=== PATIENT | male | born 1970 | race African-American/Black ===

== ENCOUNTER 2016-08-24 16:30 | Observation (INO) | payer BC ==
--- NOTE | ~2016-08-24 | DS ---
Discharge Summary [id number] [place]. [address] NAME: VELMA STEIN : 74 STATUS : DIS Isaias PAT#: [id number] AGE: 46 ADM/REG DATE : 08/24/16 MR#: [id number] REPORT SERV DATE: 08/26/16 DICTATED BY: TIANNA GARCIA DATE: 08/25/16 REPORT STATUS : Draft TRANSCRIBED BY: MODDeon DATE: 08/25/16 ADMISSION DATE: 08/24/2016 DISCHARGE DATE: 08/25/2016 The patient was admitted to the Hospitalist Service. DISCHARGE DIAGNOSES: 1. Hyperthyroidism. 2. Thyroid nodule. 3. Headache. 4. Nausea and vomiting, resolved. 5. Hyperbilirubinemia. IMAGING AND DIAGNOSTICS: 1. Thyroid ultrasound on 08/25/2016 revealed enlarged heterogeneous hyperemic gland consistent with thyroiditis; circumscribed hyperechoic nodule in the lower pole of the left lobe. Based on characteristics, this nodule scores 3 points on the ACR TI-RADS lexicon. It can be followed sonographically in 6 months. 2. 08/24/2016, PA and lateral chest x-ray revealed normal two view chest exam. 3. 08/24/2016, CT scan of the brain without contrast, negative noncontrast head CT. LABORATORY STUDIES: 1. 08/24/2016, thyroid function studies revealed T3 uptake 54%. 2. TSH less than 0.005. 3. Free T4 greater than 8.00. 4. T3 free greater than 30.00. 5. Hepatic panel, renal panel, and basic metabolic panel on 08/25/2016 revealed a sodium of 140, potassium 4.2, chloride 105, CO2 of 28, BUN 22, creatinine 0.75, GFR 129, glucose 100, calcium 8.8, phosphorus 5.0, cholesterol 102, HDL 28, LDL 61, triglycerides 69, total protein 6.0, albumin 3.1, direct bilirubin 0.3, indirect bilirubin 1.5, total bilirubin 1.8, alkaline phosphatase 62, ALT 31, AST 13. 6. CBC on 08/25/2016: White blood cells 3.5, hemoglobin 12.9, hematocrit 36.5, platelets 183,000. HISTORY OF PRESENT ILLNESS: For complete history, please refer to admission H and P by Dr. Karyna Garcia on 08/24/2016. Briefly, Mr. Stein is a 46-year-old man, who has no significant past medical history or takes regular medications at home. He started feeling ill approximately two weeks ago, had been nauseated, dizzy, and lightheaded. He was seen at the urgent care on 08/18/2016 and told he had a sinus infection. He was given a steroid shot and a prescription antibiotic along with a steroid taper. Initially, he felt better for couple of days, however, he started again feeling lightheaded and feeling run down, overall weak and dizzy with some cramping abdominal discomfort. He also complained of a headache, intermittent. 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 He states that he had some palpitations. The hospitalist service was asked to admit him for further Discharge Summary [address] [address] NAME: VELMA STEIN : 74 STATUS : DIS Isaias PAT#: [id number] AGE: 46 ADM/REG DATE : 08/24/16 MR#: [id number] REPORT SERV DATE: 08/26/16 DICTATED BY: TIANNA GARCIA DATE: 08/25/16 REPORT STATUS : Draft TRANSCRIBED BY: ARNIE DATE: 08/25/16 evaluation and treatment. HOSPITAL COURSE: Mr. Stein was admitted to a telemetry bed in observation status with a diagnosis of hyperthyroidism, hyperbilirubinemia, and nausea and vomiting. In the emergency room, he was given a dose of methimazole 20 mg p.o. An ultrasound of the thyroid was written on his admission orders as well as a radioiodine uptake thyroid scan. He was given IV fluids, normal saline at 125 mL/h., p.r.n. antiemetics and pain medication. He was started on methimazole 10 mg p.o. q.8 hours and propranolol 20 mg p.o. q.6h. with parameters to hold for systolic blood pressure or low heart rate. I initially saw the patient on the morning of 08/25/2016. He was in no acute distress. He was sitting in bed, speaking on the phone. He denied any dizziness and stated the nausea and vomiting had resolved. He had good breakfast. His only complaint was a slight headache for which he was getting Tylenol for. The radioiodine uptake scan was cancelled as the patient had received methimazole; therefore, this test could not be performed. Mr. Stein informed me that he has no primary care provider and requested a primary care provider in the [place] area as he works again in [employer] at [employer]. I was able to schedule him a new patient appointment with Dr. Hein at [facility] buildings. In the afternoon of 08/25/2016, the patient was reassessed. He was in no acute distress. Denied any pain, palpitations, or other symptoms. I informed him about his thyroid ultrasound results and a new patient followup appointment with Dr. Hein. His vital signs were stable. Blood pressure 112/55, heart rate 99, respirations 18, and O2 saturation 96% on room air and he was afebrile. Telemetry showed sinus rhythm. His lungs were clear to auscultation. Abdomen is soft and nontender. Peripheral pulses palpable with no clubbing, cyanosis, or edema. Therefore, on the afternoon of 08/25/2016, he was discharged home in stable condition with close followup. DISCHARGE INSTRUCTIONS: Included: 1. Diet as tolerated. 2. Activity as tolerated. DISCHARGE MEDICATIONS: Are as follows: 1. Methimazole 10 mg p.o. every eight hours. 2. Inderal 20 mg p.o. every eight hours. 3. Tylenol 1000 mg p.o. b.i.d. p.r.n. headache. Prescriptions are provided for the methimazole and propranolol. I have also asked Mr. Stein to check his heart rate and blood pressure prior to taking the Inderal and a prescription was written for a blood pressure monitor. He is instructed to keep a blood pressure and heart rate diary and take this with him to his followup appointment next week with Dr. Hein. Again, he will follow up with Dr. Hein on 09/02/2016 at 4 p.m. TERESA/ARNIE Haley Garcia, [employer]STAB[employer] WORKER- / [id number] Discharge Summary [address] [address] NAME: VELMA STEIN : 74 STATUS : DIS Isaias PAT#: [id number] AGE: 46 ADM/REG DATE : 08/24/16 MR#: [id number] REPORT SERV DATE: 08/26/16 DICTATED BY: TIANNA GARCIA DATE: 08/25/16 REPORT STATUS : Draft TRANSCRIBED BY: MODDeon DATE: 08/25/16 CC: Ricki Narayan Jr, MD Richard Pigg, MD
--- NOTE | ~2016-08-24 | HP ---
History And Physical [address] [facility] [place]. [address] NAME: VELMA STEIN : 74 STATUS : ADM Isaias PAT#: [id number] AGE: 46 ADM/REG DATE : 08/24/16 MR#: [id number] REPORT SERV DATE: 08/24/16 DICTATED BY: KARYNA PERAZA DATE: 08/24/16 REPORT STATUS : Draft TRANSCRIBED BY: MODL DATE: 08/24/16 DATE OF ADMISSION: 08/24/2016 CHIEF COMPLAINT: Not feeling well. Dizzy and nausea. HISTORY OF PRESENT ILLNESS: Obtained from the patient as well as from emergency room documents. There are no prior medical records available for us to review. According to the information available, the patient is a pleasant 46-year-old black man with no significant prior past medical history, on no regular medications at home, who started for about 10 days to feel ill. States that he has been nauseated, dizzy, lightheaded. On Thursday, he experienced also neck pain and left-side shoulder pain. Therefore, he went to an urgent care on 08/18/2016 on Thursday, and was told that he has "deep sinus infection," was given a steroid shot in the clinic and given prescription for antibiotic as well as steroid-tapering pack. The patient states that initially, he felt better for a day or two, but two to three days ago, he started feeling lightheaded again, feeling rundown, overall weak with nausea and cramping abdominal discomfort. No diarrhea. Headache had resolved, but no URI like symptoms or congestion, and reported no coughing. No fever or chills, even though he reported that he felt "hot," and maintaining good appetite and he denies any specific weight loss, even though his family present stated that he looked like he has lost some weight. Today, the patient went back to work, working at the [employer] and he felt to seek to continue and therefore, he came to the emergency room to be evaluated. Upon arrival in the emergency room, the patient was noticed to be in some discomfort. Vital signs showed a temperature 97.6 and a pulse of 102. Further investigations revealed a hyperthyroid state, newly diagnosed. Because of the above presentation and the fact that the patient does not have a primary care provider, the hospitalist service was contacted from emergency room department for admission and further workup and treatment. The patient denies taking any [id number] natural or herbal supplements. Denies any dysuria or urinary symptoms. Denies chest pain. He admits to feel palpitations and "the whole body was beating with my heart." Denies dyspnea on exertion or shortness of breath. Denies diaphoresis. Denies any other neurologic complaints. PAST MEDICAL HISTORY: As above, unremarkable. PAST SURGICAL HISTORY: Inguinal hernia repair as a child, 6 years old. SOCIAL HISTORY: He is , lives with family. Denies tobacco abuse. Has never smoked. Denies alcohol abuse. Denies illicit recreational drug abuse. 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 FAMILY HISTORY: Significant for hypertension, diabetes in his mother, as well as there is a family history for CHF, prostate cancer, and lung cancer. MEDICATIONS AT HOME: Patient does not take regularly any prescribed medication. The patient stated that since Thursday08/18/2016, has taken Omnicef 300 mg p.o. b.i.d. prescribed for 10 days and also Medrol Dosepak, which patient has stopped taking three days ago as he considered the "side effects." History And Physical [address] [address] NAME: VELMA STEIN : 74 STATUS : ADM Isaias PAT#: [id number] AGE: 46 ADM/REG DATE : 08/24/16 MR#: [id number] REPORT SERV DATE: 08/24/16 DICTATED BY: KARYNA PERAZA DATE: 08/24/16 REPORT STATUS : Draft TRANSCRIBED BY: MODDeon DATE: 08/24/16 ALLERGIES: TO PENICILLIN. REVIEW OF SYSTEMS: As per H and P, otherwise negative in all review of systems. Please note, the comprehensive review of systems was obtained and pertinent positives were including in the H and P. PHYSICAL EXAMINATION: GENERAL: A pleasant, co-operant, anxious about condition and admission. Otherwise, no particular distress. VITAL SIGNS: Upon arrival in the emergency room, blood pressure 122/71, pulse 102 getting up to 130 with exertion and mobilization, temperature 97.6, respiratory rate 16, oxygen saturation 97% on room air. HEENT: Pupils equal, round, and reactive to light. Extraocular movements intact. Throat, mild erythema. No exudate. No signs of tenderness. Mild exophthalmos noticed. NECK: Supple. No JVD. No lymph nodes. No bruits. Thyroid palpable with possible small enlargement to the right thyroid lobe. No definite nodules noticed. LUNGS: Bilateral air entry. Clear bilaterally. No wheezing. HEART: Positive S1, S2. Tachycardic. Positive soft systolic ejection murmur at the apex. PMI nondisplaced by palpation. No rub, no gallop. ABDOMEN: Positive bowel sounds. Soft, nontender. No guarding, no hepatosplenomegaly. EXTREMITIES: With full range of motion. +2 pulses. No clubbing, no cyanosis, no edema. NEUROLOGIC: Alert and oriented x3. Grossly nonfocal. Cranial nerves 2 through 12 are grossly intact. Motor strength 5/5 symmetrical bilateral. Deep tendon reflexes 2/2 symmetrical bilateral. BACK: With full range of motion. No localized tenderness. No CVA tenderness. SKIN: No bruises, no rashes, no lacerations. SIGNIFICANT LABORATORY DATA: EKG (personal reading) showed normal sinus rhythm at 92 beats per minute. No acute ST elevation. Basically a normal EKG. Chest x-ray, not available, not done. CT scan of the head done in the emergency room, showed a normal head-brain CT scan (full report attached to chart and discussed with the patient and family). Sodium 136, potassium 4.4, chloride 99, bicarb 32, BUN 25, creatinine 0.8, glucose 101, calcium 9.5. Liver function tests, within normal limits except total bilirubin of 2.3, lipase 119. Troponin I less than 0.02. White cell count 4.9, hemoglobin 14.3 with a platelet count of 236. Urinalysis was hazy, protein 30, trace ketones, negative LE, negative nitrite, bacteria rare. TSH less than 0.005, free T4 more than 8. ASSESSMENT AND PLAN AND PROBLEM LIST: The patient is a pleasant 46-year-old black man, admitted with hyperthyroidism. IMPRESSION: 1. Hyperthyroidism, with the possible right thyroid nodule/enlargement. We are going to start treatment with methimazole and propranolol. Provide with adequate IV hydration. We are going to check free T3 as well in addition to his previously mentioned thyroid function test, and we are going to get a thyroid uptake scan. 2. Nausea and vomiting. Treat symptomatically. Only a likely part of his presentation. History And Physical [address] [place] [address] NAME: VELMA STEIN : 74 STATUS : ADM Isaias PAT#: [id number] AGE: 46 ADM/REG DATE : 08/24/16 MR#: [id number] REPORT SERV DATE: 08/24/16 DICTATED BY: KARYNA PERAZA DATE: 08/24/16 REPORT STATUS : Draft TRANSCRIBED BY: ARNIE DATE: 08/24/16 Monitor for any signs of diarrhea. 3. Hyperbilirubinemia, likely benign as all other liver function tests within normal limits. We are going to repeat liver function test and check a direct and indirect bilirubin at this moment. PROGNOSIS: Moderately good for this admission. Discussed with the patient and patient's family present at bedside. Please note, the patient is a full code at this moment. Please note, the patient does not have a primary care provider. ADALBERTO/ARNIE Karyna Peraza M.D. / [id number]
[2016-08-24 15:03] LABS: ASCORBIC ACID (UR NOT ORDER) NEG (NEG); BILIRUBIN, URINE NEGATIVE (NEG); ER URINALYSIS TAT 0 Hrs 13 Mins; KETONE, URINE TRACE MG/DL (NEG); LEUKOCYTE ESTERASE(NOT OR NEG (NEG); NITRITE (URINE) NEG (NEG); WBC (NOT ORDERED) (RFLEX) 2 (0-5)
[2016-08-24 15:22] LABS: BASOPHILS 0 %; EOSINOPHILS 0 %; HEMATOCRIT 39.9 % (40.0-51.0); HEMOGLOBIN 14.3 g/dL (13.6-17.8); LYMPHOCYTES 26.5 %; LYMPHOCYTES ABSOLUTE 1.29 10/3/uL (0.67-4.30); MEAN CORPUS HGB CONC 35.8 g/dL (32.0-36.0); MEAN CORPUSCULAR HEMOGLOB 30.2 pg (26.0-34.0); MEAN CORPUSCULAR VOLUME 84.4 fL (80-100); MEAN PLATELET VOLUME 9.5 fL (9.2-13.0); MONOCYTES 11.7 %; MONOCYTES ABSOLUTE 0.57 10/3/uL (0.21-1.20); NEUTROPHILS 61.8 %; NEUTROPHILS ABSOLUTE 3.01 10/3/uL (2.02-8.40); PLATELET COUNT 236 10/3/uL (150-400); RBC DISTRIBUTION WIDTH 11.6 % (12.0-16.0); RED CELL COUNT 4.73 10/6/uL (4.7-6.1); WHITE BLOOD CELLS 4.9 10/3/uL (4.5-10.5)
[2016-08-24 15:24] LABS: MANUAL DIFF NO %
[2016-08-24 15:47] LABS: A/G RATIO 1.1 (0.7-1.9); ALBUMIN 3.7 G/DL (3.5-5.0); ALKALINE PHOSPHATASE 79 U/L (45-117); BUN (BLOOD UREA NITROGEN) 25 MG/DL (6-23); CALCIUM, SERUM 9.5 MG/DL (8.5-10.4); CHLORIDE, SERUM 99 MMOL/L (96-112); CO2 (CARBON DIOXIDE) 32 MMOL/L (24-34); GFR AFRICAN AMERICAN 126 ML/MIN (>=60); GFR NON AFRICAN AMERICAN 109 ML/MIN (>=60); GLOBULIN 3.4 G/DL (2.5-4.1); GLUCOSE, SERUM 101 MG/DL (60-99); POTASSIUM, SERUM 4.4 MMOL/L (3.5-5.3); SGOT(AST) 10 U/L (5-40); SGPT(ALT) 42 U/L (5-65); SODIUM, SERUM 136 MMOL/L (135-148); TOTAL BILIRUBIN 2.3 MG/DL (0-1.2); TOTAL PROTEIN 7.1 G/DL (6.0-8.5); TROPONIN I <0.02 NG/ML (<0.05); ULTRASENSITIVE TSH < 0.005 MCIU/ML (0.358-3.740)
[2016-08-24 16:14] LABS: T3 UPTAKE 54 % (30-45)
[2016-08-24 16:16] LABS: FREE T4 > 8.00 NG/DL (0.76-1.46)
[2016-08-24] MEDS ORDERED: OMNICEF300 PO (16:40)
[2016-08-24] MEDS ORDERED: MEDROLPAK4 PO (16:41)
[2016-08-24] MEDS ORDERED: ACET500CAP PO (16:42)
[2016-08-24 23:22] LABS: CPK 86 U/L (0-200); PHOSPHORUS, SERUM 5.3 MG/DL (2.5-4.5)
[2016-08-24 23:42] LABS: CK-MB 0.9 NG/ML
[2016-08-25 04:32] LABS: BASOPHILS 0.3 %; BASOPHILS ABSOLUTE 0.01 10/3/uL (0.0-0.16); EOSINOPHILS 1.1 %; EOSINOPHILS ABSOLUTE 0.04 10/3/uL (0.0-0.53); HEMATOCRIT 36.5 % (40.0-51.0); HEMOGLOBIN 12.9 g/dL (13.6-17.8); LYMPHOCYTES 54.6 %; MEAN CORPUS HGB CONC 35.3 g/dL (32.0-36.0); MEAN CORPUSCULAR HEMOGLOB 29.9 pg (26.0-34.0); MEAN CORPUSCULAR VOLUME 84.5 fL (80-100); MEAN PLATELET VOLUME 9.2 fL (9.2-13.0); MONOCYTES 14.1 %; MONOCYTES ABSOLUTE 0.49 10/3/uL (0.21-1.20); NEUTROPHILS 29.9 %; NEUTROPHILS ABSOLUTE 1.04 10/3/uL (2.02-8.40); PLATELET COUNT 183 10/3/uL (150-400); RBC DISTRIBUTION WIDTH 11.6 % (12.0-16.0); RED CELL COUNT 4.32 10/6/uL (4.7-6.1); WHITE BLOOD CELLS 3.5 10/3/uL (4.5-10.5)
[2016-08-25 04:35] LABS: MANUAL DIFF NO %
[2016-08-25 04:54] LABS: ALBUMIN 3.1 G/DL (3.5-5.0); BUN (BLOOD UREA NITROGEN) 22 MG/DL (6-23); CALCIUM, SERUM 8.8 MG/DL (8.5-10.4); CHLORIDE, SERUM 105 MMOL/L (96-112); CHOL/HDL RATIO(NOT ORDER) 3.6 (0-5); CHOLESTEROL 102 MG/DL (< 200); CO2 (CARBON DIOXIDE) 28 MMOL/L (24-34); CPK 79 U/L (0-200); CREATININE 0.75 MG/DL (0.70-1.30); DIRECT BILIRUBIN 0.3 MG/DL (0.0-0.4); GFR AFRICAN AMERICAN 129 ML/MIN (>=60); GFR NON AFRICAN AMERICAN 112 ML/MIN (>=60); GLUCOSE, SERUM 100 MG/DL (60-99); HDL CHOLESTEROL 28 MG/DL (> 39); LDL CHOLESTEROL 61 MG/DL (< 130); NON-HDL CHOLESTEROL 74 MG/DL (< 160); POTASSIUM, SERUM 4.2 MMOL/L (3.5-5.3); SGOT(AST) 13 U/L (5-40); SGPT(ALT) 31 U/L (5-65); SODIUM, SERUM 140 MMOL/L (135-148); TRIGLYCERIDE 69 MG/DL (< 150)
[2016-08-25 04:55] LABS: ALKALINE PHOSPHATASE 62 U/L (45-117); CK-MB 1.1 NG/ML; INDIRECT BILIRUBIN(NOT ORDER) 1.5 MG/DL (0.1-0.9); TOTAL BILIRUBIN 1.8 MG/DL (0-1.2)
[2016-08-25] MEDS ORDERED: METHIMAZOLE10 MG PO (17:00)
[2016-08-25] MEDS ORDERED: I20 PO (17:02)
== END 2016-08-25 17:27 | disposition home or self-care (01) ==
LOC: ER 16:30 → CDU1 17:58 → CDU2 18:46
PROVIDERS: Internal Medicine; Nurse Practitioner
DX: E05.20 Thyrotoxicosis with toxic multinodular goiter without thyrotoxic crisis or storm (principal); E80.6 Other disorders of bilirubin metabolism; Z79.899 Other long term (current) drug therapy; Z98.890 Other specified postprocedural states; Z82.49 Family history of ischemic heart disease and other diseases of the circulatory system; Z83.3 Family history of diabetes mellitus; Z80.1 Family history of malignant neoplasm of trachea, bronchus and lung; Z88.0 Allergy status to penicillin
CPT/HCPCS: 70450; 71020; 76536; 80053; 80061; 80069; 80076; 81001; 82550; 82553; 83690; 83735; 83880; 84100; 84439; 84443; 84479; 84481; 84484; 85025; 93005; 96372; 96374; 99285; A9270-GY; G0378; J2405